=== PATIENT | male | born 1945 | race Two or more races ===

== ENCOUNTER 2025-01-11 12:30 | Inpatient (IN) | payer OTHER ==
[~2025-01-11] VITALS: Ht 170.2 cm; Wt 77.1 kg
[2025-01-11 17:58] LABS: COL EPI 80 SECONDS (82-175)
[2025-01-12] MEDS ORDERED: COZAAR50 MG PO (16:08)
[2025-01-12] MEDS ORDERED: LIPITOR40 MG PO (16:08)
[2025-01-12] MEDS ORDERED: XARELTO10 MG PO (16:09)
[2025-01-12] MEDS ORDERED: LANTUS SOL100 UNIT/1 (16:09)
[2025-01-19] MEDS ORDERED: CEFTRIAXONE SODIUM 2,000 MG VIAL ONE (07:16)
[2025-01-19] MEDS ORDERED: METRONIDAZOLE/SODIUM CHLORIDE 500 MG/100 ML PIGGYBACK IV ONE (07:16)
[2025-01-19] MEDS ORDERED: CHLORHEXIDINE GLUCONATE 120 ML BOTTLE TOP ONE (08:39)
[2025-01-19] MEDS ORDERED: MORPHINE SULFATE 4 MG/ML CARTRIDGE IV PRN (10:30)
[2025-01-19] MEDS ORDERED: OxyCODONE HCL 5 MG TABLET (ROXICODONE) PO PRN (10:30)
[2025-01-19] MEDS ORDERED: RINGERS SOLUTION,LACTATED 1,000 ML IV SCH (10:30)
[2025-01-19] MEDS ORDERED: DEXTROSE 50 % IN WATER 0.5 G/ML VIAL IV PRN ×2 (10:30→11:15)
[2025-01-19] MEDS ORDERED: ONDANSETRON HCL 2 MG/ML VIAL IV PRN (10:30)
[2025-01-19] MEDS ORDERED: INSULIN LISPRO 1,000 UNIT/10 ML UNITS SUBCUTANEO PRN (11:15)
[2025-01-19] MEDS ORDERED: ENALAPRILAT DIHYDRATE 1.25 MG/ML VIAL IV PRN (11:30)
[2025-01-19] MEDS ORDERED: SOD FERRIC GLUC COMPLX/SUCROSE 62.5 MG in 0.9 % SODIUM CHLORIDE 50 ML IV NR (12:00)
[2025-01-19 12:17] LABS: BUN CREA RATIO 24.0 (7.0-25.0); CREATININE SERUM 0.89 mg/dL (0.70-1.30); GFR 82.24; GLUCOSE FASTING 109.0 mg/dL (65-100); OSMOLALITY SERUM 289.0 MOSM/KG (275-295)
[2025-01-19 12:31] LABS: BASO % 0.8 % (0.1-1.2); EOS # 0.09 (0.04-0.54); EOS % 1.2 % (0.7-7.0); LYMPH # 2.21 (1.18-3.74); LYMPH % 29.2 % (19.3-53.1); MEAN PLATELET VOLUME 10.80 fl (9.4-12.4); MONO # 0.64 (0.24-0.82); MONO % 8.4 % (4.7-12.5); NEUT # 4.55 (1.56-6.13); NEUT % 60.0 % (34.0-71.1); RED CELL DISTRIBUTION WIDTH 13.6 % (11.6-14.4)
[2025-01-19] MEDS ORDERED: HYOSCYAMINE SULFATE 0.125 MG TAB.SUBL SL SCH (13:00)
[2025-01-19] MEDS ORDERED: MORPHINE SULFATE 2 MG/ML CARTRIDGE IV ONE ×2 (13:50)
[2025-01-19] MEDS ORDERED: ACETAMINOPHEN 500 MG GEL..CAP PO SCH (14:00)
[2025-01-19] MEDS ORDERED: ENALAPRILAT DIHYDRATE 1.25 MG/ML VIAL IV ONE (14:12)
[2025-01-19] MEDS ORDERED: TAMSULOSIN HCL 0.4 MG CAP PO ONE (15:39)
[2025-01-19] MEDS ORDERED: HYOSCYAMINE SULFATE 0.125 MG TAB.SUBL ONE (15:39)
[2025-01-19] MEDS ORDERED: GABAPENTIN 300 MG CAPSULE PO ONE (15:39)
[2025-01-19] MEDS ORDERED: ACETAMINOPHEN 500 MG GEL..CAP PO ONE (15:39)
[2025-01-19 16:24] VITALS: BP 170/62; O2SAT 96
[2025-01-19] MEDS ORDERED: TAMSULOSIN HCL 0.4 MG CAP PO SCH (17:00)
[2025-01-19] MEDS ORDERED: SOD FERRIC GLUC COMPLX/SUCROSE 62.5 MG in 0.9 % SODIUM CHLORIDE 50 ML IV SCH (17:00)
[2025-01-19] MEDS ORDERED: GABAPENTIN 300 MG CAPSULE PO SCH (17:00)
[2025-01-19] MEDS ORDERED: FAMOTIDINE/PF 20 MG/2 ML VIAL IV PUSH SCH (21:00)
[2025-01-20 00:37] VITALS: BP 136/79; O2SAT 96
[2025-01-20 07:34] LABS: BASO % 0.2 % (0.1-1.2); EOS # 0.12 (0.04-0.54); EOS % 1.0 % (0.7-7.0); LYMPH # 1.82 (1.18-3.74); LYMPH % 14.8 % (19.3-53.1); MEAN PLATELET VOLUME 10.80 fl (9.4-12.4); MONO # 0.93 (0.24-0.82); MONO % 7.6 % (4.7-12.5); NEUT # 9.35 (1.56-6.13); NEUT % 76.1 % (34.0-71.1); RED CELL DISTRIBUTION WIDTH 13.0 % (11.6-14.4)
[2025-01-20 08:05] LABS: BUN CREA RATIO 21.0 (7.0-25.0); CREATININE SERUM 0.8 mg/dL (0.70-1.30); GFR 93.01; GLUCOSE FASTING 124.0 mg/dL (65-100); OSMOLALITY SERUM 288.0 MOSM/KG (275-295)
[2025-01-20 08:34] VITALS: BP 169/60; O2SAT 96
[2025-01-20] MEDS ORDERED: Cyanocobalamin/Mecobalamin 1 TAB.SL SL SCH (09:00)
[2025-01-20] MEDS ORDERED: SOD FERRIC GLUC COMPLX/SUCROSE 62.5 MG in 0.9 % SODIUM CHLORIDE 50 ML IV SCH (09:00)
[2025-01-20] MEDS ORDERED: LOSARTAN POTASSIUM 50 MG TABLET PO SCH (09:00)
[2025-01-20] MEDS ORDERED: TAMS0.4C PO (09:55)
[2025-01-20] MEDS ORDERED: TRAM1TAB98 PO (09:56)
[2025-01-20] MEDS ORDERED: ATORVASTATIN CALCIUM 40 MG TABLET PO SCH (17:00)
[2025-01-20] MEDS ORDERED: ENOXAPARIN SODIUM 40 MG/0.4 ML SYRINGE SUBCUTANEO SCH (17:00)
[2025-01-21] MEDS ORDERED: ENOXAPARIN SODIUM 40 MG/0.4 ML SYRINGE SUBCUTANEO SCH (09:00)
== END 2025-01-20 14:24 | disposition home or self-care (01) | DRG 331 ==
LOC: O/R 01-19 07:00 → SURH 01-19 12:00
PROVIDERS: ADMIT Surgery; ATTEND Surgery
PROC: 0DBP0ZZ Excision of Rectum, Open Approach (ICD-10-PCS; 2025-01-19)
PROC: 0DUR0JZ Supplement Anal Sphincter with Synthetic Substitute, Open Approach (ICD-10-PCS; 2025-01-19)
PROC: 0DTNFZZ Resection of Sigmoid Colon, Via Natural or Artificial Opening With Percutaneous Endoscopic Assistance (ICD-10-PCS; principal; 2025-01-19 12:00)
DX: K62.3 Rectal prolapse (principal); I11.9 Hypertensive heart disease without heart failure; R15.9 Full incontinence of feces